=== PATIENT | female | born 1990 | race Caucasian/White ===

== ENCOUNTER 2017-08-12 11:01 | Emergency (ER) | payer BC ==
--- NOTE | 2017-08-12 12:08 | ER Document Report ---
ED Medical Screen (RME) - General Chief Complaint: Lower Abdominal Pain Stated Complaint: ABDOMINAL PAIN Time Seen by Provider: 08/12/17 11:59 Mode of Arrival: Ambulatory Information source: Patient Notes: Pt is a 26 year old female who presents to the ER today for rlq pain that started this morning and lasted about an hour, now has subsided. Pt states it was very sharp and took her breath away. She does have all her organs. She denies n/v/d, dysuria, blood in her urine or history of kidney stones. She has hx of ovarian cyst and this pain occurred about a week ago as well but went away. TRAVEL OUTSIDE OF THE [place] IN LAST 30 DAYS: No - Related Data Allergies/Adverse Reactions: No Known Drug Allergies Allergy (Verified 08/12/17 11:03) Past Medical History - General Information source: Patient Review of Systems - Review of Systems Gastrointestinal: See HPI Genitourinary: See HPI Female Genitourinary: See HPI Physical Exam - Vital signs Vitals: Temp Pulse Resp BP Pulse Ox 98.4 F 98 16 124/68 100 08/12/17 11:08 08/12/17 11:08 08/12/17 11:08 08/12/17 11:08 08/12/17 11:08 - Notes Notes: General: NAD, smiling Abd: mild RLQ tenderness Course - Vital Signs Vital signs: Temp Pulse Resp BP Pulse Ox 98.4 F 98 16 124/68 100 08/12/17 11:08 08/12/17 11:08 08/12/17 11:08 08/12/17 11:08 08/12/17 11:08 Doctor's Discharge - Discharge Referrals: REGULO LAWLER NP [Primary Care Provider] - Follow up as needed
[2017-08-12 13:04] LABS: APPEARANCE,URINE CLEAR; BILIRUBIN,URINE NEGATIVE (NEGATIVE); COLOR,URINE STRAW; GLUCOSE, URINE NEGATIVE (NEGATIVE); KETONES,URINE TRACE mg/dL (NEGATIVE); LEUKOCYTE ESTERASE,URINE NEGATIVE (NEGATIVE); NITRITE,URINE NEGATIVE (NEGATIVE); PROTEIN,URINE NEGATIVE (NEGATIVE); URINE SPECIFIC GRAVITY 1.009; UROBILINOGEN,URINE NEGATIVE mg/dL (<2.0)
[2017-08-12 13:45] LABS: ABSOLUTE EOSINOPHILS # (AUTO) 0.3 10^3/uL (0.0-0.6); ABSOLUTE LYMPHOCYTES (AUTO) 1.7 10^3/uL (0.5-4.7); ABSOLUTE MONOCYTES (AUTO) 0.6 10^3/uL (0.1-1.4); ABSOLUTE NEUT (AUTO) 5.6 10^3/uL (1.7-8.2); BASOPHILS % (AUTO) 0.4 % (0-2); EOSINOPHILS % (AUTO) 3.4 % (0-6); HEMATOCRIT 40.8 % (36.0-47.0); HEMOGLOBIN 13.5 g/dL (12.0-15.5); LYMPHOCYTES % (AUTO) 20.8 % (13-45); MEAN CORPUSCULAR HEMOGLOBIN 28.1 pg (27.0-33.4); MEAN CORPUSCULAR VOLUME 85 fl (80-97); MONOCYTES % (AUTO) 7.1 % (3-13); PLATELET COUNT 247 10^3/uL (150-450); RED CELL DISTRIBUTION WIDTH 13.4 % (11.5-14.0); SEGMENTED NEUTROPHILS % (AUTO) 68.3 % (42-78); TOTAL CELLS COUNTED % (AUTO) 100 %; WHITE BLOOD COUNT 8.2 10^3/uL (4.0-10.5)
[2017-08-12 14:01] LABS: ALANINE AMINOTRANSFERASE 41 U/L (9-52); ALBUMIN 4.9 g/dL (3.5-5.0); ALKALINE PHOSPHATASE 34 U/L (38-126); ANION GAP 16 (5-19); ASPARTATE AMINO TRANSFERASE 45 U/L (14-36); BILIRUBIN,DIRECT 0.4 mg/dL (0.0-0.4); BILIRUBIN,TOTAL 0.5 mg/dL (0.2-1.3); BLOOD UREA NITROGEN 14 mg/dL (7-20); CALCIUM 9.9 mg/dL (8.4-10.2); CARBON DIOXIDE 24 mmol/L (22-30); CHLORIDE 103 mmol/L (98-107); GLUCOSE 77 mg/dL (75-110); POTASSIUM 5.3 mmol/L (3.6-5.0); SODIUM 142.7 mmol/L (137-145); TOTAL PROTEIN 8.2 g/dL (6.3-8.2)
--- NOTE | 2017-08-12 14:21 | RADIOLOGY REPORT (SQ) ---
EXAM DESCRIPTION: U/S NON OB PEL TV W/DOPPLER COMPLETED DATE/TIME: 08/12/2017 2:09 pm REASON FOR STUDY: rlq pain COMPARISON: None. TECHNIQUE: Dynamic and static grayscale images acquired of the pelvis via transvaginal approach and recorded on PACS. Additional selected color Doppler and spectral images recorded. LIMITATIONS: None. FINDINGS: UTERUS: Contour normal. No mass. The uterus measures 6.6 x 4.2 x 3.3 cm in size. ENDOMETRIAL STRIPE: No focal or generalized thickening. No masses. The endometrium 10 mm in thicknes s. CERVIX: Closed, multiple subcentimeter nabothian cysts. RIGHT OVARY AND DOPPLER: Normal size, 3 x 2.8 x 2.4 cm in size with a 2 cm right ovarian cyst. No wo rrisome masses. Normal arterial vascular flow without evidence for torsion. Small amount of right ad nexal free fluid, nonspecific. LEFT OVARY AND DOPPLER: Normal size 2.6 x 1.9 x 1.6 cm in size. No worrisome masses. Normal arterial vascular flow without evidence for torsion. FREE FLUID: Small amount of right adnexal free fluid, nonspecific. OTHER: No other significant finding. IMPRESSION: 2 CM RIGHT OVARIAN CYST. SMALL AMOUNT OF RIGHT ADNEXAL FREE FLUID. OTHERWISE, UNREMARKABLE TRANSVAGINAL PELVIC ULTRASOUND. TECHNICAL DOCUMENTATION: JOB ID: [id number]- All Rights Reserved Rev-07/19 Reading location - IP/workstation name: [facility]-RR
--- NOTE | 2017-08-12 14:36 | ER Document Report ---
ED GI/ - General Chief Complaint: Lower Abdominal Pain Stated Complaint: ABDOMINAL PAIN Time Seen by Provider: 08/12/17 11:59 Mode of Arrival: Ambulatory Information source: Patient Notes: Pt is a 26 year old female who presents to the ER today for rlq pain that started this morning and lasted about an hour, now has subsided. Pt states it was very sharp and took her breath away. She does have all her organs. She denies n/v/d, dysuria, blood in her urine or history of kidney stones. She has hx of ovarian cyst and this pain occurred about a week ago as well but went away. TRAVEL OUTSIDE OF THE [place] IN LAST 30 DAYS: No - Related Data Allergies/Adverse Reactions: No Known Drug Allergies Allergy (Verified 08/12/17 11:03) Past Medical History - General Information source: Patient - Social History Smoking Status: Never Smoker Family History: Reviewed & Not Pertinent Review of Systems - Review of Systems Constitutional: No symptoms reported EENT: No symptoms reported Cardiovascular: No symptoms reported Respiratory: No symptoms reported Gastrointestinal: See HPI Genitourinary: No symptoms reported Female Genitourinary: No symptoms reported Musculoskeletal: No symptoms reported Skin: No symptoms reported Hematologic/Lymphatic: No symptoms reported Neurological/Psychological: No symptoms reported Physical Exam - Vital signs Vitals: Temp Pulse Resp BP Pulse Ox 98.4 F 98 16 124/68 100 08/12/17 11:08 08/12/17 11:08 08/12/17 11:08 08/12/17 11:08 08/12/17 11:08 - Notes Notes: PHYSICAL EXAMINATION: GENERAL: Well-appearing and in no acute distress. HEAD: Atraumatic, normocephalic. EYES: Pupils equal round and reactive to light, extraocular movements intact, sclera anicteric, conjunctiva are normal. NECK: Normal range of motion, supple without lymphadenopathy LUNGS: CTAB and equal. No wheezes rales or rhonchi. HEART: Regular rate and rhythm without murmurs ABDOMEN: Soft, mild rlq tenderness. No guarding, no rebound BACK: no vertebral tenderness, normal ROM GI/: no CVA tenderness EXTREMITIES: Normal range of motion, no pitting edema. No cyanosis. NEUROLOGICAL: Cranial nerves grossly intact. Normal sensory/motor exams. PSYCH: Normal mood, normal affect. SKIN: Warm, Dry, normal turgor, no rashes or lesions noted Course - Re-evaluation Re-evalutation: 08/12/17 18:55 Ultrasound reports a 2 cm right ovarian cyst with some minimal free pelvic fluid , lab work is unremarkable today, negative, patient given ELEVATED GUARD for follow-up. - Vital Signs Vital signs: Temp Pulse Resp BP Pulse Ox 98.2 F 72 16 124/62 99 08/12/17 14:48 08/12/17 14:48 08/12/17 14:48 08/12/17 14:48 08/12/17 14:48 - Laboratory Result Diagrams: 08/12/17 13:15 08/12/17 13:15 Laboratory results interpreted by me: 08/12/17 08/12/17 11:15 13:15 Potassium 5.3 H AST 45 H Alkaline Phosphatase 34 L Urine Ketones TRACE H Urine Ascorbic Acid 40 H Discharge - Discharge Clinical Impression: Right ovarian cyst Condition: Stable Disposition: HOME, SELF-CARE Additional Instructions: Please see OBGYN for your ovarian cyst. Please return with any worsening symptoms. Prescriptions: Hydrocodone/Acetaminophen [[place] 5-325 mg Tablet] 1 tab PO Q4 PRN #15 tablet PRN Reason: Referrals: REGULO LAWLER NP [Primary Care Provider] - Follow up as needed [facility] [Provider Group] - Follow up as needed
[2017-08-12 14:49] VITALS: BP 124/62
== END 2017-08-12 14:51 | disposition home or self-care (01) ==
LOC: ER 11:01
DX: N83.201 Unspecified ovarian cyst, right side (principal); R10.31 Right lower quadrant pain
CPT/HCPCS: 36415; 76830; 80053; 81001; 81025; 85025; 93976; 99284

== ENCOUNTER 2019-12-22 13:43 | Outpatient (CLI) | payer BC, MEDICAID ==
[2019-12-22 15:00] LABS: APPEARANCE,URINE SLIGHTLY-CLOUDY; BILIRUBIN,URINE NEGATIVE (NEGATIVE); COLOR,URINE YELLOW; GLUCOSE, URINE NEGATIVE (NEGATIVE); KETONES,URINE NEGATIVE (NEGATIVE); LEUKOCYTE ESTERASE,URINE TRACE (NEGATIVE); NITRITE,URINE NEGATIVE (NEGATIVE); PROTEIN,URINE 30 mg/dL (NEGATIVE); URINE SPECIFIC GRAVITY 1.012; UROBILINOGEN,URINE NEGATIVE mg/dL (<2.0)
[2019-12-22 15:18] LABS: URINE AMPHETAMINES SCREEN NEGATIVE; URINE BARBITURATES SCREEN NEGATIVE; URINE BENZODIAZEPINES SCREEN NEGATIVE; URINE COCAINE SCREEN NEGATIVE; URINE METHADONE SCREEN NEGATIVE; URINE PHENCYCLIDINE SCREEN NEGATIVE
[2019-12-22 15:27] LABS: URINE MARIJUANA (THC) SCREEN NEGATIVE
[2019-12-22] MEDS ORDERED: HYDROXYZINE PAMOATE 50 MG CAPSULE ONE (15:51)
[2019-12-22] MEDS ORDERED: HYDROXYZINE PAMOATE 50 MG CAPSULE PO ONE (15:57)
--- NOTE | 2019-12-22 16:23 | Non Stress Test Report ---
Non Stress Test Datetime Report Generated by CPN: 12/22/2019 16:22 DEMOGRAPHIC EGA NST: 40.6 MONITORING Monitor Explained: Monitor Explained; Test Explained; Patient Verbalized Understanding Time on Monitor: 12/22/2019 14:03 Time off Monitor: 12/22/2019 14:28 NST Duration: 25 NST INTERVENTIONS NST Interventions: None Physician Notified NST: J Marcano CNM BABY A: [id number] BABY A Movement : Present Contraction Frequency : 1-5 FHR Baseline : 130 Accelerations : 15X15 Decelerations : None Variability : Moderate 6-25bpm NST Review: Meets Criteria for Reactive NST NST Review and Verified By : A. [place] RN NST Results: Reactive NST REPORT Report Trigger: Send Report
== END 2019-12-22 16:26 | disposition home or self-care (01) ==
LOC: LC 13:43
PROVIDERS: ATTEND Obstetrics & Gynecology
DX: O26.893 Other specified pregnancy related conditions, third trimester (principal); R10.9 Unspecified abdominal pain; Z3A.40 40 weeks gestation of pregnancy
CPT/HCPCS: 59025; 80307; 81005

== ENCOUNTER 2019-12-22 18:41 | Inpatient (IN) | payer BC, MEDICAID ==
[2019-12-22] MEDS ORDERED: PROMETHAZINE HCL INJ 25 MG/1 ML VIAL IV ONE (22:03)
[2019-12-22] MEDS ORDERED: NALBUPHINE HCL INJ 10 MG/1 ML AMPULE INJ ONE (22:03)
[2019-12-22] MEDS ORDERED: PROMETHAZINE HCL INJ 25 MG/1 ML VIAL ONE (22:05)
[2019-12-22] MEDS ORDERED: NALBUPHINE HCL INJ 10 MG/1 ML AMPULE ONE (22:05)
[2019-12-23] MEDS ORDERED: OXYTOCIN/0.9 % SODIUM CHLORIDE 30 UNIT/500 ML RTUINJ IV PRN ×2 (02:51→14:54)
[2019-12-23] MEDS ORDERED: RINGERS SOLUTION,LACTATED 1,000 ML IV PRN (02:51)
[2019-12-23] MEDS ORDERED: RINGERS SOLUTION,LACTATED 1,000 ML IV ONE (02:51)
[2019-12-23 03:22] LABS: HEMATOCRIT 37.8 % (36.0-47.0); HEMOGLOBIN 12.7 g/dL (12.0-15.5); MEAN CORPUSCULAR HEMOGLOBIN 27.9 pg (27.0-33.4); MEAN CORPUSCULAR HGB CONC 33.5 g/dL (32.0-36.0); MEAN CORPUSCULAR VOLUME 83 fl (80-97); PLATELET COUNT 152 10^3/uL (150-450); RED BLOOD COUNT 4.54 10^6/uL (3.72-5.28); RED CELL DISTRIBUTION WIDTH 14.3 % (11.5-14.0); WHITE BLOOD COUNT 18.4 10^3/uL (4.0-10.5)
[2019-12-23] MEDS ORDERED: OXYTOCIN 10 UNIT/ML VIAL ONE (03:27)
[2019-12-23] MEDS ORDERED: OXYTOCIN/0.9 % SODIUM CHLORIDE 30 UNIT/500 ML RTUINJ ONE (03:28)
[2019-12-23] MEDS ORDERED: MISOPROSTOL 0.2 MG TABLET ONE (03:28)
[2019-12-23] MEDS ORDERED: LIDOCAINE 1% INJ-PF (10 MG/ML) 30 ML SDV ONE (03:28)
[2019-12-23 03:44] LABS: ABSOLUTE LYMPHOCYTES# (MANUAL) 0.7 10^3/uL (0.5-4.7); ABSOLUTE MONOCYTES # (MANUAL) 0.6 10^3/uL (0.1-1.4); BASOPHILS % (MANUAL) 0 % (0-2); EOSINOPHILS % (MANUAL) 0 % (0-6); LYMPHOCYTES % (MANUAL) 4 % (13-45); MONOCYTES % (MANUAL) 3 % (3-13); SEGMENTED NEUTROPHILS % (MAN) 93 % (42-78); TOTAL CELLS COUNTED 100
[2019-12-23 03:46] LABS: ANISOCYTOSIS SLIGHT
[2019-12-23 03:47] LABS: PLATELET COMMENT ADEQUATE
[2019-12-23] MEDS ORDERED: EPHEDRINE SULFATE INJ 50 MG/1 ML AMPULE ONE (03:55)
[2019-12-23] MEDS ORDERED: FENTANYL/BUPIVACAINE/NS/PF 300 MCG/150 ML RTUINJ EPI ONE (03:55)
[2019-12-23] MEDS ORDERED: ROPIVACAINE HCL 0.2% INJ/PF (2 MG/ML) 20 ML SDV ONE (03:55)
[2019-12-23] MEDS ORDERED: FENTANYL CITRATE INJ/PF 100 MCG/2 ML AMPUL ONE (08:31)
--- NOTE | 2019-12-23 08:54 | Admission Physical ---
Datetime Report Generated by CPN: 12/23/2019 08:54 CURRENT ADMISSION Hx Assessment: The History has been Reviewed and is Current Chief Complaint: Uterine Contractions Chief Complaint Other: Contractions over the last 24 hours worsening in severity Admit Impression : Postterm, Intrauterine Admit Plan: Admit to Unit; Initiate Labor Protocol ALLERGIES Medication Allergies: No Medication Allergies: No Known Drug Allergies (12/22/2019) Latex: No Latex Allergies Food Allergies: none Environmental Allergies: none OBSTETRICAL HISTORY EDC: 12/16/2019 00:00 : 1 Para: 0 Term: 0 : 0 SAB: 0 IAB: 0 Livin Cesareans: 0 Gestational Diabetes: No Rh Sensitization: No Incompetent Cervix: No LIDA: No Infertility: No ART Treatment: No Uterine Anomaly: No IUGR: No Hx Previous C/S: No Macrosomia: No Hx Loss/Stillborn: No PIH: No Hx : No Placenta Previa/Abruption: No Depression/PP Depression: No PTL/PROM: No Post Hemorrhage: No Current Procedures: Ultrasound Obstetrical History Comments: G1- Current SEE RECORDS Alcohol: No Marijuana : No Cocaine: No Other Illicit Drugs: No Cigarettes: Never Smoker. 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 Surgery: No Heart Disease: No Hosp/Surgery: Yes Autoimmune Disorder: No Anesthetic Complications: No Kidney Disease: No Abnormal Pap Smear: Yes Neuro/Epilepsy: No Psychiatric Disorders: No Other Medical Diseases: No Hepatitis/Liver Disease: No Significant Family History: No Varicosities/Phlebitis: No Trauma/Violence : No Thyroid Dysfunction: No Medical History Comments: wisdom teeth, breast augmentation, seasonal asthma (has inhaler), abnormal pap- 2016 colpo was normal (Annotations: Data stored by [facility] on behalf of user) INFECTIOUS HISTORY Gonorrhea: No Genital Herpes: No Chlamydia: No Tuberculosis: No Syphilis: No Hepatitis: No HIV/AIDS Exposure: No Rash or Viral Illness: No HPV: No PHYSICAL EXAM General: Normal HEENT: Normal Neurologic: Normal Thyroid: Normal Heart: Normal Lungs: Normal Breast: Normal Back: Normal Abdomen: Normal Genitourinary Exam: Normal Extremities: Normal DTRs: Normal Pelvic Type: Adequate Vital Signs: Reviewed; Within Normal Limits VAGINAL EXAM Dilatation: 2 Effacement: 100 Station: -1 Contraction Comments: Q 3-6 minutes MEMBRANES Membranes: Intact FETUS A EGA: 41.0 Monitoring: External US FHR- Baseline: 140 Variability: Moderate 6-25bpm Accelerations: 15X15 Decelerations: None FHR Category: Category I Presentation: Vertex Admit Comment: G1 at 41.0 wks EGA in labor -Admit to LDR -CEFM and toco -NPO and IVFs: LR at 125 cc/hr after 1 liter bolus -GBS negative -Desires epidural - anticipated PLANS FOR LABOR AND DELIVERY Labor and Delivery: None Pain Management: Epidural Feeding Preference: Breast Benefit of Breast Feed Discussed: Yes Circumcision: Yes INFORMED CONSENT Informed Consent Obtained: Vaginal Delivery; Section Delivery; Vacuum/Forceps Assist; Risks, Benefits and Alternatives Discussed Signature: with User ID: Peggy : with User ID: Peggy
[2019-12-23] MEDS ORDERED: DIPHENHYDRAMINE HCL 50 MG/ML VIAL ONE (12:14)
[2019-12-23] MEDS ORDERED: ACETAMINOPHEN 325 MG TABLET ONE (12:14)
[2019-12-23] MEDS ORDERED: DIPHENHYDRAMINE HCL 50 MG/ML VIAL IV ONE (12:29)
[2019-12-23] MEDS ORDERED: ACETAMINOPHEN 325 MG TABLET PO ONE (12:29)
[2019-12-23] MEDS ORDERED: AMPICILLIN SOD INJ 2 GM VIAL ONE (14:02)
[2019-12-23] MEDS ORDERED: AMPICILLIN SOD INJ 2 GM VIAL IV ONE (14:08)
[2019-12-23] MEDS ORDERED: MORPHINE SULFATE 10 MG/ML INJ ONE (14:26)
[2019-12-23] MEDS ORDERED: MORPHINE SULFATE 10 MG/ML INJ IV ONE (14:53)
[2019-12-23] MEDS ORDERED: ACETAMINOPHEN 650 MG SUPP.RECT PR PRN (14:54)
[2019-12-23] MEDS ORDERED: MEASLES,MUMPS&RUBELLA VACC/PF 0.5 ML VIAL SUBCUT PRN (14:54)
[2019-12-23] MEDS ORDERED: PROMETHAZINE HCL 25 MG SUPP.RECT PR PRN (14:54)
[2019-12-23] MEDS ORDERED: PROMETHAZINE HCL INJ 25 MG/1 ML VIAL IV PRN (14:54)
[2019-12-23] MEDS ORDERED: DIBUCAINE 1% OINTMENT 28 GM TP PRN (14:54)
[2019-12-23] MEDS ORDERED: DIPHENHYDRAMINE HCL 25 MG CAPSULE PO PRN (14:54)
[2019-12-23] MEDS ORDERED: DIPH/PERTUSS(ACELL)/TETANUS VAC/PF 0.5 ML SYR (>=10YO) IM PRN (14:54)
[2019-12-23] MEDS ORDERED: ACETAMINOPHEN 325 MG TABLET PO PRN (14:54)
[2019-12-23] MEDS ORDERED: MAGNESIUM HYDROXIDE SUSP 30 ML UDCUP PO PRN (14:54)
[2019-12-23] MEDS ORDERED: GLYCERIN/WITCH HAZEL LEAF 1 EACH MED..WIPE TP PRN (14:54)
[2019-12-23] MEDS ORDERED: PSEUDOEPHEDRINE HCL 30 MG TABLET PO PRN (14:54)
[2019-12-23] MEDS ORDERED: PROMETHAZINE HCL 25 MG TABLET PO PRN (14:54)
[2019-12-23] MEDS ORDERED: NA PHOS,M-B/NA PHOS,DI-BA (ADULT) 133 ML ENEMA PR PRN (14:54)
[2019-12-23] MEDS ORDERED: ZOLPIDEM TARTRATE 5 MG TABLET PO PRN (14:54)
[2019-12-23] MEDS ORDERED: IBUPROFEN 800 MG TABLET PO SCH (15:00)
[2019-12-23] MEDS ORDERED: GENTAMICIN SULFATE INJ 80 MG/2 ML VIAL IV SCH (15:15)
--- NOTE | 2019-12-23 16:30 | Birth Certificate Data ---
Cert Data Datetime Report Generated by CPN: 12/23/2019 16:30 CERTIFICATE DATA 47a. Care: Yes (12/22/2019 14:08:CAR [place]) 47b. Date of First Visit: 06/03/2019 00:00 (12/22/2019 14:08:Paige Pyaan RN) 47c. Date of Last Visit: 12/21/2019 00:00 (12/22/2019 14:08:Paige Payan RN) 47d. Number of Visits: 14 (12/22/2019 14:08:Paige Payan RN) 48a. Number of Prev Live Births: 0 (12/22/2019 14:08:Carlton Kulkarni RN) 48b. Now Livin (12/22/2019 14:08:Sharon Osuna RN) 48c. Live Births Now : 0 (12/22/2019 14:08:QS system process) 48e. Losses: 0 (12/22/2019 14:08:Carlton Kulkarni RN) RISK FACTORS IN THIS 49a. Diabetes: No (12/22/2019 14:08:Carlton Kulkarni RN) 49b. Hypertension: No (12/22/2019 14:08:Carlton Kulkarni RN) 49c. Previous Births: 0 (12/22/2019 14:08:Sharon Osuna RN) 49d. Stillborns: No (12/22/2019 14:08:Carlton Kulkarni RN) 49d. IUGR: No (12/22/2019 14:08:Carlton Kulkarni RN) 49e. Infertility Treatment: No (12/22/2019 14:08:Carlton Kulkarni RN) 49f. Previous Cesareans: 0 (12/22/2019 14:08:Carlton Kulkarni RN) Mother's Height 50b. Height Inches: 62 (12/23/2019 14:32:QS system process) Mother's Weight 51a. Pre- Weight (lbs): 123 (12/22/2019 14:08:Carlton Kulkarni RN) 51b. Weight at Delivery (lbs): 152 (12/23/2019 14:32:QS system process) 52. Dt Last Normal Menses Began: 03/11/2019 00:00 (12/22/2019 14:08:Carlton Kulkarni RN) Infections Present/Treated 53a. Gonorrhea: No (12/22/2019 14:08:Carlton Kulkarni RN) Results this Hospital Visit : Negative (12/22/2019 14:08:Carlton Kuklarni RN) 53b. Syphilis: No (12/22/2019 14:08:Carlton Kulkarni RN) 53c. Chlamydia: No (12/22/2019 14:08:Carlton Kulkarni RN) Results this Hospital Visit: Negative (12/22/2019 14:08:Carlton Kulkarni RN) 53d. Hepatitis B: No (12/22/2019 14:08:Carlton Kulkarni RN) Results this Hospital Visit: Negative (12/22/2019 14:08:Carlton Kulkarni RN) 53e. Hepatitis C: Negative (12/22/2019 14:08:Carlton Kulkarni RN) 53h. Mother Tested for HBsAG: Yes (12/22/2019 14:08:Carlton Kulkarni RN) 53i. Date Tested: 06/03/2019 00:00 (12/22/2019 14:08:Carlton Kulkarni RN) 53j. Test Result: Negative (12/22/2019 14:08:Carlton Kulkarni RN) Obstetric Procedures 54a, b, c. Obstetric Procedures: Ultrasound (12/22/2019 14:08:Carlton Kulkarni RN) Cigarette Smoking Cigarette Smoking: Never Smoker. [id number] (12/22/2019 14:08:Carlton Kulkarni RN) 55a. 3 Months Before Preg - Ci (12/22/2019 14:08:Carlton Kulkarni RN) 55a. Packs: 0 (12/22/2019 14:08:Carlton Kulkarni RN) 55b. 1st Trimester of Preg- Ci (12/22/2019 14:08:Carlton Kulkarni RN) 55b. Packs: 0 (12/22/2019 14:08:Carlton Kulkarni RN) 55c. 2nd Trimester of Preg- Ci (12/22/2019 14:08:Carlton Kulkarni RN) 55c. Packs: 0 (12/22/2019 14:08:Carlton Kulkarni RN) 55d. 3rd Trimester of Preg- Ci (12/22/2019 14:08:Carlton Kulkarni RN) 55d. Packs: 0 (12/22/2019 14:08:Carlton Kulkarni RN) Onset of Labor 56a. PROM >12 Hrs: 6.17 (12/22/2019 14:08:QS system process) 56b. Precipitous Labor <3 Hrs: 6 (12/22/2019 14:08:QS system process) 56c. Prolonged Labor > 20 Hrs: 6 (12/22/2019 14:08:QS system process) 57a. Induction of Labor: Augmentation (12/22/2019 14:08:Paige Payan RN) 57c. Non-Vertex Presentation A: Vertex (12/22/2019 14:08:Paige Payan RN) 57d. Steroids - Lung Mat: None (12/22/2019 14:08:Paige Payan RN) 57d. Steroids - Lung Mat: Not Applicable (12/22/2019 14:08:Paige Payan RN) 57f. Mat Chorio or Temp >100.4: 101.4 (12/22/2019 14:08:Paige Payan RN) 57g. Moderate/Heavy Meconium: Clear (12/23/2019 08:05:Paige Payan RN) 57h. Intolerance of Labor: N/A (12/22/2019 14:08:Paige Payan RN) : N/A (12/22/2019 14:08:Paige Payan RN) 57i. Epidural/Spinal Anesthesia: Epidural (12/22/2019 14:08:Paige Payan RN) Method of Delivery 58a. Forceps - Unsuccessful A: N/A (12/22/2019 14:08:Paige Payan RN) 58b. Vacuum - Unsuccessful A: N/A (12/22/2019 14:08:Paige Payan RN) 58c. Presentation at 58c. Presentation at - A : Vertex (12/22/2019 14:08:Paige Payan RN) 58c. Presentation at - A : N/A (12/22/2019 14:08:Paige Payan RN) 58c. Presentation at - A : Cephalic (12/22/2019 18:55:Sharon Osuna RN) Final Route and Method of Del 58d. Baby A Route/Delivery: Vaginal (12/22/2019 14:08:Paige Payan RN) 58e. Trial of Labor Attempted: No (12/22/2019 14:08:Paige Payan RN) 58e. Trial of Labor Attempted A: N/A (12/22/2019 14:08:Paige Payan RN) 58e. Trial of Labor Attempted B: N/A (12/22/2019 14:08:Paige Payan RN) Maternal Morbidity 59b. 3rd or 4th Degree Lacs: Vaginal (12/22/2019 14:08:Paige Payan RN) Birthweight Baby A: 3630 (12/22/2019 14:08:Paige Payan RN) 60a. Pounds : 8 (12/22/2019 14:08:QS system process) 60b. Ounces: 0 (12/22/2019 14:08:QS system process) 61. GA at Delivery Baby A: 41.0 (12/22/2019 14:08:Paige Payan RN) : Late Term- 41- 41.6 Weeks (12/22/2019 14:08:QS system process) 62a. 5 Minute Baby A: 9 (12/22/2019 14:08:QS system process)
--- NOTE | 2019-12-23 16:30 | Delivery Summary ---
Del Sum A-C Datetime Report Generated by CPN: 12/23/2019 16:30 DELIVERY PERSONNEL DELIVERY PERSONNEL: [id number] Delivery Doctor:: Deb Robin MD Nurse [place] Certified:: Shakira Yancey CNM Labor and Delivery Nurse:: Paige Payan RNdestaticizer feeder Nurse:: CAR [place] Nursery Nurse:: Karyn Ortiz RN Nursery Nurse:: Adry Noe RN MATERNAL INFORMATION Delivery Anesthesia: Epidural Medications After Delivery: Pitocin 30 Units in 500ml NS/D5W Delivery QBL: 50 Maternal Complications: Chorioamnionitis; Maternal Fever Provider Comments: Called to patients room as she had been pushing for approximately 1 hour and may need assist of a vacuum. Discussed vacuum with patient and she was not really in favor of this unless it was absolutely necessary. heart rate in 150 bpm range and tolerating pushing well. Attempted to empty bladder but head putting too much pressure to pass cather. After several more minutes of pushing she delivered a viable male . Baby was vigorous at delivery and cord clamping delayed for 30 seconds. After cord clamped and cut, was placed on maternal chest. Both stable. Lidocaine was used to provide anesthesia for repair: 25 cc. Repair as above. Fundus firm and 2 cm below the umbilicus LABOR SUMMARY EDC: 12/16/2019 00:00 No. Babies in Womb: 1 Attempted: No Labor Anesthesia: Epidural LABOR INFORMATION Reason for Induction: Not Applicable Onset of Labor: 12/23/2019 08:05 Complete Dilatation: 12/23/2019 12:47 Oxytocin: Augmentation Group B Beta Strep: Negative Steroids Given: None Reason Steroids Not Administered: Not Applicable MEMBRANES Membranes Rupture Method: Artificial Rupture of Membranes: 12/23/2019 08:05 Length of Rupture (hr): 6.17 Amniotic Fluid Color: Clear Amniotic Fluid Amount: Small Amniotic Fluid Odor: Normal STAGES OF LABOR Stage 1 hr: 4 Stage 1 min: 42 Stage 2 hr: 1 Stage 2 min: 28 Stage 3 hr: 0 Stage 3 min: 5 Total Time in Labor hr: 6 Total Time in Labor min: 15 VAGINAL DELIVERY Episiotomy: None Laceration #1: Vaginal Laceration Extension #1: Third Degree, IIIa (Less than 50 percent ext anal sphincter thickness torn) Laceration Repair: Yes Laceration Repair Note: Laceration with only smaller portion of exernal sphincter torn. Repaired in layered closure with 2-0 chormic . Laceration extended 3 cm up the left sulcus . Repair was started at the apex in the left sulcus after interrupted repair of external anal sphincter and perineal body. Sponge Count Correct: N/A Sharps Count Correct: N/A CSECTION DELIVERY Primary Indication: N/A Secondary Indication: N/A CSection Incidence: N/A Labor: N/A Elective: N/A CSection Incision: N/A BABY A INFORMATION Delivery Date/Time: 12/23/2019 14:15 Method of Delivery: Vaginal Nurse Controlled Delivery: No Born in Route : No : N/A Forceps: N/A Vacuum Extraction: N/A Shoulder Dystocia : No PRESENTATION/POSITION BABY A Presentation: Cephalic Cephalic Presentation: Vertex Vertex Position: Left Occipital Anterior Breech Presentation: N/A PLACENTA INFORMATION BABY A Placenta Delivery Time : 12/23/2019 14:20 Placenta Method of Delivery: Spontaneous Placenta Status: Delivered SCORES BABY A Heart Rate 1 min: >100 bpm Resp Effort 1 min: Good Cry Reflex Irritability 1 min: Cough or Sneeze or Pulls Away Muscle Tone 1 min: Active Motion Color 1 min: Blue/Pale Resuscitation Effort 1 min: Tactile Stimulation SCORE 1 MIN: 8 Heart Rate 5 min: >100 bpm Resp Effort 5 min: Good Cry Reflex Irritability 5 min: Cough or Sneeze or Pulls Away Muscle Tone 5 min: Active Motion Color 5 min: Body [place], Extremities Blue Resuscitation Effort 5 min: N/A SCORE 5 MIN: 9 Resuscitation Effort 10 min: N/A INFORMATION BABY A Gestational Age at Delivery: 41.0 Gestational Status: Late Term- 41- 41.6 Weeks Outcome : Liveborn Condition : Stable Infant Sex: Male IDENTIFICATION BABY A Infant Verification Date/Time: 12/23/2019 14:32 ID Band Number: [id number] Mother's Name Verified: Yes Infant RN Verifying : Jessica Camp RNC Additional Verifying Personnel: Paige Payan RN WEIGHT/LENGTH BABY A Birthweight (gm): 3630 Infant Weight (lb): 8 Infant Weight (oz): 0 Length (in): 20.00 Length (cm): 50.80 CORD INFORMATION BABY A No. Cord Vessels: 3 Nuchal Cord : N/A Cord Blood Taken: N/A Suction: Mouth; Nose ASSESSMENT BABY A Infant Complications: Meconium Physical Findings at Delivery: Caput Succedaneum; Molding of the Head Respirations: Appears Normal Skin to Skin: Yes Inseam Leveler/ALS Called : No Care By: Shauna Ortiz RN Transferred To: Remains with Mother BABY B INFORMATION : N/A SIGNATURES Signature: with User ID: Peggy : with User ID: Peggy
[2019-12-23] MEDS ORDERED: IBUPROFEN 800 MG TABLET ONE (16:58)
[2019-12-23] MEDS ORDERED: BENZOCAINE/MENTHOL AEROSOL SPRAY 56 ML ONE (16:58)
[2019-12-23] MEDS: DOCUSATE SODIUM 100 MG CAPSULE PO SCH (18:23)
[2019-12-23] MEDS: FERROUS SULFATE 325 MG TABLET PO SCH (18:23)
[2019-12-23] MEDS: GENTAMICIN SULFATE 70 MG in DEXTROSE 5%-WATER 100 ML IV SCH (18:32)
[2019-12-23] MEDS: AMPICILLIN SODIUM 2 GM in NORMAL SALINE 100 ML IV SCH ×2 (18:44→23:34)
[2019-12-23] MEDS ORDERED: AMPICILLIN SOD INJ 2 GM VIAL IV SCH (19:00)
[2019-12-23] MEDS: FAMOTIDINE 20 MG TABLET PO SCH (21:10)
[2019-12-24] MEDS: GENTAMICIN SULFATE 70 MG in DEXTROSE 5%-WATER 100 ML IV SCH ×3 (00:37→22:27)
[2019-12-24] MEDS: IBUPROFEN 800 MG TABLET PO SCH ×3 (01:06→18:01)
[2019-12-24] MEDS: AMPICILLIN SODIUM 2 GM in NORMAL SALINE 100 ML IV SCH ×2 (06:17→23:56)
[2019-12-24] MEDS: ACETAMINOPHEN WITH CODEINE #3 TABLET PO PRN ×3 (06:18→20:16)
[2019-12-24] MEDS: BENZOCAINE/MENTHOL AEROSOL SPRAY 56 ML TOP PRN (06:29)
[2019-12-24] MEDS: SENNOSIDES/DOCUSATE 8.6-50 MG 1 EACH TABLET PO SCH (09:58)
[2019-12-24] MEDS: PRENATAL VITAMIN W DHA CAPSULE PO SCH (09:58)
[2019-12-24] MEDS: FERROUS SULFATE 325 MG TABLET PO SCH ×2 (09:58→18:01)
[2019-12-24] MEDS: FAMOTIDINE 20 MG TABLET PO SCH ×2 (09:58→22:26)
[2019-12-24] MEDS: DOCUSATE SODIUM 100 MG CAPSULE PO SCH ×2 (09:58→18:01)
[2019-12-24 13:51] LABS: HEMATOCRIT 30.7 % (36.0-47.0); MEAN CORPUSCULAR HEMOGLOBIN 28.4 pg (27.0-33.4); MEAN CORPUSCULAR HGB CONC 34.1 g/dL (32.0-36.0); MEAN CORPUSCULAR VOLUME 83 fl (80-97); PLATELET COUNT 155 10^3/uL (150-450); RED BLOOD COUNT 3.68 10^6/uL (3.72-5.28); RED CELL DISTRIBUTION WIDTH 14.9 % (11.5-14.0); WHITE BLOOD COUNT 21.5 10^3/uL (4.0-10.5)
[2019-12-24 14:12] LABS: HEMOGLOBIN 10.5 g/dL (12.0-15.5)
[2019-12-24 14:17] LABS: ABSOLUTE LYMPHOCYTES# (MANUAL) 1.7 10^3/uL (0.5-4.7); ABSOLUTE MONOCYTES # (MANUAL) 0.6 10^3/uL (0.1-1.4); BAND NEUTROPHILS % (MANUAL) 2 % (3-5); BASOPHILS % (MANUAL) 0 % (0-2); EOSINOPHILS % (MANUAL) 0 % (0-6); LYMPHOCYTES % (MANUAL) 7 % (13-45); MONOCYTES % (MANUAL) 3 % (3-13); SEGMENTED NEUTROPHILS % (MAN) 87 % (42-78); TOTAL CELLS COUNTED 100
[2019-12-24 14:18] LABS: PLATELET COMMENT ADEQUATE; RBC MORPHOLOGY COMMENT NORMO-CYTIC/CHROMIC
--- NOTE | 2019-12-24 16:47 | PDOC PROGRESS REPORT ---
Subjective-OB Progress Note for:: 12/24/19 Subjective: reports bleeding slowing, pain controlled with current meds. denies needs Physical Exam (OB) Vital Signs: Temp Pulse Resp BP Pulse Ox 97.8 F 99 16 119/67 98 12/24/19 15:05 12/24/19 15:05 12/24/19 15:05 12/24/19 15:05 12/24/19 15:05 Intake & Output 12/23/19 12/24/19 12/25/19 06:59 06:59 06:59 Intake Total 601.75 300 Output Total 300 Balance 301.75 300 Weight 68.6 kg - Maternal Morbidity 59. Maternal Morbidity (serious complications experinced by the mother associated with labor and delivery: None of the above - Abdomen Description: Soft Hernia Present: No Fundal Description: Firm Fundal Height: u/u - u/2 - Abdominal Distension: No distension Tenderness: Nontender - Extremities Lower extremities: Chris's sign - neg Calf: Normal, Nontender Objective-Diagnostic Laboratory: 12/24/19 13:23 12/24/19 13:23 WBC 21.5 H RBC 3.68 L Hgb 10.5 L D Hct 30.7 L MCV 83 MCH 28.4 MCHC 34.1 RDW 14.9 H Plt Count 155 Seg Neutrophils % Not Reportable Assessment and Plan(PN) - Time Spent with Patient Time with patient: Less than 15 minutes Medications reviewed and adjusted accordingly: Yes - Disposition Anticipated Discharge Disposition: Home, Self Care Anticipated Discharge Timeframe: within 24 hours
[2019-12-25] MEDS: IBUPROFEN 800 MG TABLET PO SCH ×2 (01:08→09:16)
[2019-12-25] MEDS: ACETAMINOPHEN WITH CODEINE #3 TABLET PO PRN ×2 (05:46→12:07)
[2019-12-25] MEDS: AMPICILLIN SODIUM 2 GM in NORMAL SALINE 100 ML IV SCH ×2 (05:47→11:29)
[2019-12-25] MEDS: BENZOCAINE/MENTHOL AEROSOL SPRAY 56 ML TOP PRN (06:25)
[2019-12-25] MEDS: GENTAMICIN SULFATE 70 MG in DEXTROSE 5%-WATER 100 ML IV SCH ×2 (06:26→13:14)
[2019-12-25 07:57] LABS: ABSOLUTE EOSINOPHILS # (AUTO) 0.2 10^3/uL (0.0-0.6); ABSOLUTE LYMPHOCYTES (AUTO) 1.7 10^3/uL (0.5-4.7); ABSOLUTE MONOCYTES (AUTO) 0.9 10^3/uL (0.1-1.4); ABSOLUTE NEUT (AUTO) 12.9 10^3/uL (1.7-8.2); BASOPHILS % (AUTO) 0.3 % (0-2); EOSINOPHILS % (AUTO) 1.2 % (0-6); HEMATOCRIT 27.4 % (36.0-47.0); HEMOGLOBIN 9.4 g/dL (12.0-15.5); LYMPHOCYTES % (AUTO) 10.6 % (13-45); MEAN CORPUSCULAR HEMOGLOBIN 28.7 pg (27.0-33.4); MEAN CORPUSCULAR HGB CONC 34.1 g/dL (32.0-36.0); MEAN CORPUSCULAR VOLUME 84 fl (80-97); MONOCYTES % (AUTO) 5.9 % (3-13); PLATELET COUNT 143 10^3/uL (150-450); RED BLOOD COUNT 3.26 10^6/uL (3.72-5.28); RED CELL DISTRIBUTION WIDTH 15.2 % (11.5-14.0); TOTAL CELLS COUNTED % (AUTO) 100 %; WHITE BLOOD COUNT 15.7 10^3/uL (4.0-10.5)
[2019-12-25] MEDS: SENNOSIDES/DOCUSATE 8.6-50 MG 1 EACH TABLET PO SCH (09:16)
[2019-12-25] MEDS: PRENATAL VITAMIN W DHA CAPSULE PO SCH (09:16)
[2019-12-25] MEDS: FERROUS SULFATE 325 MG TABLET PO SCH (09:16)
[2019-12-25] MEDS: DOCUSATE SODIUM 100 MG CAPSULE PO SCH (09:16)
[2019-12-25] MEDS: FAMOTIDINE 20 MG TABLET PO SCH (09:17)
--- NOTE | 2019-12-25 10:33 | PDOC DISCHARGE SUMMARY ---
Impression - Admit/DC Date/PCP Admission Date/Primary Care Provider: 12/23/19 02:48 CIARRA CARUSO MD Discharge Date: 12/25/19 - PP day #2, doing well, no complaints, A+, rubela Non- immune, s/p IOL. - Discharge Diagnosis (1) Acute blood loss anemia Is this a current diagnosis for this admission?: Yes (2) Delivery normal Is this a current diagnosis for this admission?: Yes (3) Perineal laceration complicating delivery Is this a current diagnosis for this admission?: Yes (4) Third degree perineal laceration Is this a current diagnosis for this admission?: Yes - Additional Information Resuscitation Status: Full Code Discharge Diet: As Tolerated, Regular Discharge Activity: Activity As Tolerated, No Lifting Over 10 Pounds, Pelvic Rest Referrals: CIARRA CARUSO MD [Primary Care Provider] - Prescriptions: Docusate Sodium [Colace 100 mg Capsule] 100 mg PO BID #60 capsule Ferrous Sulfate [Feosol 325 mg Tablet] 325 mg PO DAILY #30 tablet Ibuprofen [Motrin 800 mg Tablet] 800 mg PO Q8A #60 tablet Home Medications: Prenat 115/Iron Fum/Folic/Dss [ 19 Tablet] 1 each PO DAILY 12/22/19 Docusate Sodium [Colace 100 mg Capsule] 100 mg PO BID #60 capsule 12/25/19 Ferrous Sulfate [Feosol 325 mg Tablet] 325 mg PO DAILY #30 tablet 12/25/19 Ibuprofen [Motrin 800 mg Tablet] 800 mg PO Q8A #60 tablet 12/25/19 HPI Reason(s) for Admission: Induction of Labor Procedures: NST, Ultrasound Intrapartum Procedure(s): Spontaneous Vaginal Delivery Complication(s): Laceration-Perineal Laceration-Degree: 3rd Hospital Course 59. Maternal Morbidity (serious complications experinced by the mother associated with labor and delivery: Third or fourth degree perineal laceration Results Laboratory Results: WBC 15.7 10^3/uL (4.0-10.5) H 12/25/19 07:15 RBC 3.26 10^6/uL (3.72-5.28) L 12/25/19 07:15 Hgb 9.4 g/dL (12.0-15.5) L 12/25/19 07:15 Hct 27.4 % (36.0-47.0) L 12/25/19 07:15 MCV 84 fl (80-97) 12/25/19 07:15 MCH 28.7 pg (27.0-33.4) 12/25/19 07:15 MCHC 34.1 g/dL (32.0-36.0) 12/25/19 07:15 RDW 15.2 % (11.5-14.0) H 12/25/19 07:15 Plt Count 143 10^3/uL (150-450) L 12/25/19 07:15 Lymph % (Auto) 10.6 % (13-45) L 12/25/19 07:15 Pender % (Auto) 5.9 % (3-13) 12/25/19 07:15 Eos % (Auto) 1.2 % (0-6) 12/25/19 07:15 Baso % (Auto) 0.3 % (0-2) 12/25/19 07:15 Absolute Neuts (auto) 12.9 10^3/uL (1.7-8.2) H 12/25/19 07:15 Absolute Lymphs (auto) 1.7 10^3/uL (0.5-4.7) 12/25/19 07:15 Absolute Monos (auto) 0.9 10^3/uL (0.1-1.4) 12/25/19 07:15 Absolute Eos (auto) 0.2 10^3/uL (0.0-0.6) 12/25/19 07:15 Absolute Basos (auto) 0.0 10^3/uL (0.0-0.2) 12/25/19 07:15 Total Counted 100 12/24/19 13:23 Seg Neutrophils % 82.0 % (42-78) H 12/25/19 07:15 Seg Neuts % (Manual) 87 % (42-78) H 12/24/19 13:23 Band Neutrophils % 2 % (3-5) L 12/24/19 13:23 Lymphocytes % (Manual) 7 % (13-45) L 12/24/19 13:23 Atypical Lymphs % 1 % (0) 12/24/19 13:23 Monocytes % (Manual) 3 % (3-13) 12/24/19 13:23 Eosinophils % (Manual) 0 % (0-6) 12/24/19 13:23 Basophils % (Manual) 0 % (0-2) 12/24/19 13:23 Abs Neuts (Manual) 19.1 10^3/uL (1.7-8.2) H 12/24/19 13:23 Abs Lymphs (Manual) 1.7 10^3/uL (0.5-4.7) 12/24/19 13:23 Abs Monocytes (Manual) 0.6 10^3/uL (0.1-1.4) 12/24/19 13:23 Absolute Eos (Manual) 0.0 10^3/uL (0.0-0.6) 12/24/19 13:23 Abs Basophils (Manual) 0.0 10^3/uL (0.0-0.2) 12/24/19 13:23 Platelet Comment ADEQUATE 12/24/19 13:23 Anisocytosis SLIGHT 12/23/19 03:03 RBC Morph Comment NORMO-CYTIC/CHROMIC 12/24/19 13:23 POC Glucose 136 mg/dL (70-110) H 12/23/19 17:29 RPR NONREACTIVE (NONREACTIVE) 12/23/19 03:03 Blood Type A POSITIVE 12/23/19 03:03 Antibody Screen NEGATIVE 12/23/19 03:03 Plan Plan of Treatment: d/c home, f/up with [facility] in 4 wks
[2019-12-25 11:37] VITALS: BP 129/78
== END 2019-12-25 15:10 | disposition home or self-care (01) | DRG 768 ==
LOC: LC 18:41 → LR 12-23 02:48 → 2S 12-23 17:49
PROVIDERS: ADMIT Obstetrics & Gynecology; ATTEND Obstetrics & Gynecology
PROC: 10E0XZZ Delivery of Products of Conception, External Approach (ICD-10-PCS; principal; 2019-12-23)
PROC: 0DQR0ZZ Repair Anal Sphincter, Open Approach (ICD-10-PCS; 2019-12-23)
DX: O48.0 Post-term pregnancy (principal); Z37.0 Single live birth; O41.1230 Chorioamnionitis, third trimester, not applicable or unspecified; O75.2 Pyrexia during labor, not elsewhere classified; O70.21 Third degree perineal laceration during delivery, IIIa; D62 Acute posthemorrhagic anemia; O99.52 Diseases of the respiratory system complicating childbirth; O99.02 Anemia complicating childbirth; J45.909 Unspecified asthma, uncomplicated; Z3A.41 41 weeks gestation of pregnancy; O77.0 Labor and delivery complicated by meconium in amniotic fluid; Z79.51 Long term (current) use of inhaled steroids
CPT/HCPCS: 1967; 36415; 82962; 85025; 86592; 86850; 86900; 86901; 88307; 94760; J0290; J1200; J1580; J2270; J2300; J2550; J2590; J2795; J3010; J3490; J7050; J7060